=== PATIENT | female | born 1990 | race Caucasian/White ===

== ENCOUNTER 2017-02-19 01:56 | Emergency (ER) | payer BC ==
[~2017-02-19] VITALS: Ht 170.2 cm; Wt 59.0 kg
--- NOTE | ~2017-02-19 | CT2 ---
[facility] A Service of [facility] RADIOLOGY TEXT RESULTS PATIENT: ROOPA ALEXANDRA LOCATION: [facility] : [birth year] UNIT #: [id number] AGE: [address]: Dickson Ruiz MD SEX: F ORDER DR: [id number] [address] [place], [place] [address] [id number] E MR#: [id number] #: [id number] NAME: ROOPA ALEXANDRA : 1990 SEX: F STUDY DATE/TIME: 02/19/2017 4:11 UNIT: TIFFANIE ROOM: STUDY DESCRIPTION: CT Abd and Pelv W Cont Attending Physician: Dickson Ruiz M.D. Ordering Physician: Dickson Ruiz M.D. Primary Care Physician: Maty Meadows M.D. MEDICAL IMAGING REPORT This report is preliminary unless electronic signature is present EXAM CT abdomen and pelvis with contrast, 02/19/2017 HISTORY 26-year-old female in the ED complaining of 4-day history of cramping, mid abdominal pain and nausea. TECHNIQUE CT examination of the abdomen and pelvis with IV contrast. GI contrast was not ordered. This CT exam was performed with one or more of the following radiation dose reduction techniques: automatic exposure control, adjustment of mA and/or kV according to patient size, and iterative reconstruction. FINDINGS ABDOMEN FINDINGS: Liver, pancreas and spleen are normal in size and appearance. No gallbladder distension or bile duct dilatation. Both kidneys are negative with no evidence of urinary obstruction. Small bowel and colon are normal in caliber and appearance, as imaged. The appendix is within normal limits. PELVIS FINDINGS: Uterus, ovaries, urinary bladder and rectum are within normal limits. No mass, adenopathy or fluid collection within the abdomen or pelvis. Limited lung base images show no active disease in the lower chest. IMPRESSION Negative CT examination of the abdomen and pelvis. Dictated by... [facility] A Service of [facility] RADIOLOGY TEXT RESULTS PATIENT: ROOPA ALEXANDRA LOCATION: [facility] : [birth year] UNIT #: [id number] AGE: [address]: Dickson Ruiz MD SEX: F ORDER DR: Aly Priest M.D. THIS IS AN ELECTRONICALLY VERIFIED REPORT Aly Priest M.D. at 02/19/2017 10:03 PM Delfina TD: 02/19/2017 10:52 JOB #: [id number] MEDICAL IMAGING REPORT Page 1 of 1 COPY
[2017-02-19 02:49] LABS: URINE SOURCE CLEAN CATCH
[2017-02-19 02:55] LABS: BASOPHIL% 0.2 % (0-2.5); EOSINOPHIL# 0.2 X10e3 (0-0.7); EOSINOPHIL% 2.9 % (0.0-7.0); HEMATOCRIT 40.7 % (35.0-45.0); HEMOGLOBIN 13.7 gm/dL (12.0-16.0); LYMPHOCYTE# 1.2 X10e3 (1.0-3.5); LYMPHOCYTE% 19.5 % (17.0-45.0); MEAN CELL VOLUME 89.1 FL (83-96); MEAN CORPUSCULAR HEMOGLOBIN 29.9 PG (28-34); MEAN CORPUSCULAR HGB CONC 33.6 g/dL (30-36); MEAN PLATELET VOLUME 8.6 FL (6.5-11.5); MONOCYTE# 0.8 X10e3 (0-1.0); MONOCYTE% 12.3 % (3.0-12.0); NEUTROPHIL# 4.2 X10e3 (1.5-7.1); NEUTROPHIL% 65.1 % (40-75); PLATELET COUNT 195 X10e3 (140-420); RED BLOOD COUNT 4.56 X10e (3.90-5.30); WHITE BLOOD COUNT 6.4 X10e3 (4.0-10.5)
[2017-02-19 02:56] LABS: DIFF IND NO
[2017-02-19 02:57] LABS: URINE APPEARANCE CLEAR; URINE BILIRUBIN NEG (NEG); URINE BLOOD 1+ (NEG); URINE COLOR YELLOW; URINE GLUCOSE NEG (NEG); URINE KETONE NEG (NEG); URINE LEUKOCYTE ESTERASE TRACE (NEG); URINE NITRATE NEG (NEG); URINE PH 6.5 (5-8); URINE PROTEIN NEG (NEG); URINE SPECIFIC GRAVITY 1.013 (1.003-1.035); URINE UROBILINOGEN 0.2 MG/DL (NEG)
[2017-02-19 03:01] LABS: CULTURE INDICATED? NO
[2017-02-19 03:22] LABS: BUN/CREATININE RATIO 10.83; CALCIUM SERUM 8.9 mg/dL (8.4-10.2); CREATININE SERUM 1.2 mg/dL (0.6-1.4); GLOM FILT RATE Estimated 61.9 mL/min (>60); POTASSIUM 3.7 mmol/L (3.5-5.1)
== END 2017-02-19 05:23 | disposition home or self-care (01) ==
LOC: CED 01:56
PROVIDERS: Emergency Medicine
DX: R10.9 Unspecified abdominal pain (principal); Z88.1 Allergy status to other antibiotic agents
CPT/HCPCS: 36415; 74177; 80048; 81003; 84703; 85025; 96361; 96374; 96375; 99284; J2270; J2405; Q9967